=== PATIENT | female | born 1970 | race Caucasian/White ===

== ENCOUNTER → 2017-07-23 | Outpatient (CLI) | payer BC ==
[~2017-07-23] MED LIST: CLARITIN10 MG; COMPLETE MULTI1 EAC2 PO; HEARTBURN RELIE75 MG PO; IBUPROFEN 600600 M1 PO; NOHOMEMEDICATIONS; NORCO 5-325 TA1 EACH PO; PRILOSEC 20 MG20 MG; ROBAXIN500 MG PO
== END ==
LOC: M.RAD 10:59
DX: R06.02 Shortness of breath (principal); R05 Cough